=== PATIENT | male | born 1965 | race Caucasian/White ===

== ENCOUNTER 2016-05-23 13:38 | Emergency (ER) | payer OTHER ==
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
== END 2016-05-23 14:00 | disposition home or self-care (01) ==
LOC: ER 13:38
DX: F10.129 Alcohol abuse with intoxication, unspecified (principal); M54.9 Dorsalgia, unspecified; G89.29 Other chronic pain; Z85.9 Personal history of malignant neoplasm, unspecified